=== PATIENT | female | born 1955 | race Caucasian/White ===

== ENCOUNTER 2018-07-31 10:10 | Day surgery (SDC) | payer OTHER ==
[2018-07-28 12:47] VITALS: BMI 35.5
[2018-07-31] MEDS ORDERED: PROPOFOL 20 ML ONE ×2 (10:45)
[2018-07-31 11:00] VITALS: TEMP 98.4
[2018-07-31 12:03] VITALS: BP 107/70; PULSE 71
--- NOTE | 2018-08-02 18:38 | PATH ---
Surgical Pathology Report Patient Name: ABBY STAFFORD [facility] Rec. #: [id number] /Age/Gender: 1955 (Age: 63) / F Account: [id number] Location: [facility] Taken: 07/31/2018 Received: 07/31/2018 Reported: 08/02/2018 Physicians: Neri Moreno M.D. Specimen(s) Received A: BX DUODENUM B: BX ANTRUM Clinical History GERD Postoperative diagnosis: Non-ulcer dyspepsia Final Diagnosis A. DUODENUM, BIOPSY: DUODENAL MUCOSA WITHOUT SIGNIFICANT PATHOLOGIC FINDINGS. B. STOMACH, ANTRUM, BIOPSY: GASTRIC ANTRAL MUCOSA WITH MILD CHRONIC GASTRITIS. IMMUNOHISTOCHEMICAL STAIN FOR H. PYLORI IS NEGATIVE. Electronically Signed Nano Ackerman M.D. Gross Description A. Received in formalin, labeled "biopsy duodenum" are 2 boyle, irregular portions of soft tissue measuring 0.3 and 0.4 cm. in greatest dimension. The specimens are submitted in toto in one cassette. B. Received in formalin, labeled "biopsy antrum" are 2 boyle, irregular portions of soft tissue measuring 0.3 and 0.4 cm. in greatest dimension. The specimens are submitted in toto in one cassette. 08/01/201808/01/2018
== END 2018-07-31 12:15 | disposition home or self-care (01) ==
LOC: FASU-ENDO 10:10 → MERGE 10:10 → FASU-ENDO 12:15
PROVIDERS: ATTEND Internal Medicine Gastroenterology
PROC: 0DB68ZX Excision of Stomach, Via Natural or Artificial Opening Endoscopic, Diagnostic (ICD-10-PCS; 2018-07-31)
PROC: 0DB98ZX Excision of Duodenum, Via Natural or Artificial Opening Endoscopic, Diagnostic (ICD-10-PCS; principal; 2018-07-31 11:20)
DX: K29.50 Unspecified chronic gastritis without bleeding (principal); R12 Heartburn
CPT/HCPCS: 82962; 88305-TC; 88342-TC